=== PATIENT | female | born 1980 | race American Indian/Alaskan Native ===

== ENCOUNTER 2019-08-08 18:40 | Emergency (ER) | payer BC ==
--- NOTE | 2019-08-08 19:01 | Event Note ---
ED Screening Note Date of service: 08/08/19 Time: 18:57 ED Screening Note: 38 y o f presents to ed s/p syncope earlier today while walking to bathroom because she felt nauseous PMH: HTN on meds, anxiety, cc of cook, dizziness This initial assessment/diagnostic orders/clinical plan/treatment(s) is/are subject to change based on patients health status, clinical progression and re- assessment by fellow clinical providers in the ED. Further treatment and workup at subsequent clinical providers discretion. Patient/guardian urged not to elope from the ED as their condition may be serious if not clinically assessed and managed. Initial orders include: labs, ua,upt main eval
[2019-08-08 19:48] LABS: Basophils # (Auto) 0.1 K/mm3 (0.0-0.1); Basophils % (Auto) 1.1 % (0.0-1.8); Eosinophils # (Auto) 0.3 K/mm3 (0.0-0.4); Eosinophils % (Auto) 3.4 % (0.0-4.3); Hematocrit 33.2 % (30.3-42.9); Hemoglobin 11.2 gm/dl (10.1-14.3); Lymphocytes # (Auto) 2.4 K/mm3 (1.2-5.4); Lymphocytes % (Auto) 31.4 % (13.4-35.0); Mean Corpuscular HGB Conc 34 % (30-34); Mean Corpuscular Volume 76 fl (79-97); Monocytes # (Auto) 0.6 K/mm3 (0.0-0.8); Monocytes % (Auto) 7.4 % (0.0-7.3); Platelet Count 444 K/mm3 (140-440); Red Blood Count 4.37 M/mm3 (3.65-5.03); Red Cell Distribution Width 15.8 % (13.2-15.2)
[2019-08-08 20:04] LABS: INR 0.93 (0.87-1.13)
[2019-08-08] MEDS ORDERED: ONDANSETRON 4 MG/2 ML INJ IV ONE ×2 (20:16→23:05)
[2019-08-08] MEDS ORDERED: MORPHINE 4 MG/1 ML INJ IV ONE (20:16)
--- NOTE | 2019-08-08 20:17 | Emergency Department Report ---
ED Syncope HPI - General Chief Complaint: Syncope Stated Complaint: SYNCOPE Time Seen by Provider: 08/08/19 19:56 Source: patient Exam Limitations: no limitations - History of Present Illness Initial Comments: 38-year-old female the past without these are hypertension, anxiety, and previous CVA without residual deficits presents to the hospital complains of syncopal episode. Per complains of 8/10 frontal headache since waking up. Prior to syncopal episode patient states she was feeling well and at baseline physical status. She denies chest pain, shortness of breath, vomiting, diarrhea, melena, hematochezia, or abdominal pain. Patient not on control. 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 Patient states she is allergic to NSAIDs and aspirin and does not take aspirin daily. Pt has been compliant with her metoprolol 25 mg twice a day. She took her 9 PM dose earlier than scheduled because she felt dizzy. Pt does have a pmd but cant recall the n tarah - Related Data Allergies/Adverse Reactions: Allergies aspirin Allergy (Verified 08/08/19 20:22) Swelling NSAIDS (Non-Steroidal Anti-Inflamma Allergy (Verified 08/08/19 18:54) Swelling Home Medications: Ambulatory Orders Butalb/Acetaminophen/Caffeine [Fioricet 50-300-40 mg CAP] 1 cap PO Q6HR PRN #20 cap 08/09/19 Meclizine [Antivert] 25 mg PO TID PRN #20 tablet 08/09/19 Ondansetron [Zofran Odt] 4 mg PO Q8HR PRN #20 tab.rapdis 08/09/19 ED Review of Systems ROS: Stated complaint: SYNCOPE Other details as noted in HPI Comment: All other systems reviewed and negative ED Past Medical Hx - Past Medical History Previous Medical History?: Yes Hx Hypertension: Yes Hx CVA: Yes Hx Psychiatric Treatment: Yes (Anxiety) - Surgical History Past Surgical History?: No - Social History Smoking Status: Never Smoker Substance Use Type: None - Medications Home Medications: Home Medications Medication Instructions Recorded Confirmed Last Taken Type Butalb/Acetaminophen/Caffeine 1 cap PO Q6HR PRN #20 cap 08/09/19 Unknown Rx [Fioricet 50-300-40 mg CAP] Meclizine [Antivert] 25 mg PO TID PRN #20 tablet 08/09/19 Unknown Rx Ondansetron [Zofran Odt] 4 mg PO Q8HR PRN #20 tab.rapdis 08/09/19 Unknown Rx ED Physical Exam - General Limitations: No Limitations - Other Other exam information: General: No limitations, patient is alert in no acute distress Head exam: Atraumatic, normocephalic Eyes exam: Normal appearance, CARLOS, EOMI ENT: Moist mucous membrane Neck exam: Normal inspection, full range of motion, neck supple Respiratory exam: Clear to auscultation bilateral, no wheezes, rales, crackles Cardiovascular: Normal rate and rhythm Abdomen: Soft, nondistended, and nontender, with normal bowel sounds, no rebound, or guarding, Extremity: No deformity, no calf tenderness or leg edema. Back: Normal Inspection Neurologic: Alert, oriented x3, speech clear, no gross motor or sensory deficit, finger nose finger function intact Psychiatric: Normal mood, affect Skin: No rash ED Course Vital Signs 08/08/19 08/08/19 08/08/19 18:58 20:05 20:41 Temperature 97.4 F L 98.2 F Pulse Rate 67 64 Pulse Rate [ Lying] Respiratory 18 19 16 Rate Blood Pressure 214/114 Blood Pressure [Lying] Blood Pressure 214/108 [Right] O2 Sat by Pulse 100 100 Oximetry 08/08/19 08/08/19 08/08/19 21:11 21:54 22:24 Temperature Pulse Rate Pulse Rate [ Lying] Respiratory 19 19 16 Rate Blood Pressure Blood Pressure [Lying] Blood Pressure [Right] O2 Sat by Pulse Oximetry 08/08/19 08/08/19 08/09/19 23:10 23:44 01:44 Temperature 98.2 F 98.1 F Pulse Rate 61 56 L Pulse Rate [ 53 L Lying] Respiratory 19 16 Rate Blood Pressure Blood Pressure 168/87 [Lying] Blood Pressure 160/81 166/76 [Right] O2 Sat by Pulse 100 100 Oximetry - Reevaluation(s) Reevaluation #1: 08/08/19 21:38 pt c/o persistent frontal OSBORNE despite morphine 4mg and now has pain at xiphoid process that is reproducible with palpation. additional pain med provided. Dilaudid 0.5mg ordered ED Medical Decision Making - Lab Data Result diagrams: 08/08/19 19:15 08/08/19 19:15 Lab Results 0208/08/19 08/08/19 Range/Units 19:12 19:15 19:15 WBC 7.7 (4.5-11.0) K/mm3 RBC 4.37 (3.65-5.03) M/mm3 Hgb 11.2 (10.1-14.3) gm/dl Hct 33.2 (30.3-42.9) % MCV 76 L (79-97) fl MCH 26 L (28-32) pg MCHC 34 (30-34) % RDW 15.8 H (13.2-15.2) % Plt Count 444 H (140-440) K/mm3 Lymph % (Auto) 31.4 (13.4-35.0) % [place] % (Auto) 7.4 H (0.0-7.3) % Eos % (Auto) 3.4 (0.0-4.3) % Baso % (Auto) 1.1 (0.0-1.8) % Lymph # 2.4 (1.2-5.4) K/mm3 [place] # 0.6 (0.0-0.8) K/mm3 Eos # 0.3 (0.0-0.4) K/mm3 Baso # 0.1 (0.0-0.1) K/mm3 Seg Neutrophils % 56.7 (40.0-70.0) % Seg Neutrophils # 4.3 (1.8-7.7) K/mm3 PT (12.2-14.9) Sec. INR (0.87-1.13) Sodium 140 (137-145) mmol/L Potassium 3.5 L (3.6-5.0) mmol/L Chloride 101.2 (98-107) mmol/L Carbon Dioxide 25 (22-30) mmol/L Anion Gap 17 mmol/L BUN 9 (7-17) mg/dL Creatinine 0.8 (0.7-1.2) mg/dL Estimated GFR > 60 ml/min BUN/Creatinine Ratio 11 % Glucose 132 H (65-100) mg/dL Calcium 9.4 (8.4-10.2) mg/dL Total Bilirubin 0.20 (0.1-1.2) mg/dL AST 16 (5-40) units/L ALT 14 (7-56) units/L Alkaline Phosphatase 63 (35-129) units/L Total Creatine Kinase (30-135) units/L CK-MB (CK-2) (0.0-4.0) ng/mL CK-MB (CK-2) Rel Index (0-4) Troponin T (0.00-0.029) ng/mL Total Protein 7.5 (6.3-8.2) g/dL Albumin 4.2 (3.9-5) g/dL Albumin/Globulin Ratio 1.3 % HCG, Qual Negative (Negative) Urine Color (Yellow) Urine Turbidity (Clear) Urine pH (5.0-7.0) Ur Specific [place] (1.003-1.030) Urine Protein (Negative) mg/dL Urine Glucose (UA) (Negative) mg/dL Urine Ketones (Negative) mg/dL Urine Blood (Negative) Urine Nitrite (Negative) Urine Bilirubin (Negative) Urine Urobilinogen (<2.0) mg/dL Ur Leukocyte Esterase (Negative) Urine WBC (Auto) (0.0-6.0) /HPF Urine RBC (Auto) (0.0-6.0) /HPF U Epithel Cells (Auto) (0-13.0) /HPF Urine Mucus /HPF 08/08/19 08/08/19 08/08/19 Range/Units 19:15 19:15 20:47 WBC (4.5-11.0) K/mm3 RBC (3.65-5.03) M/mm3 Hgb (10.1-14.3) gm/dl Hct (30.3-42.9) % MCV (79-97) fl MCH (28-32) pg MCHC (30-34) % RDW (13.2-15.2) % Plt Count (140-440) K/mm3 Lymph % (Auto) (13.4-35.0) % [place] % (Auto) (0.0-7.3) % Eos % (Auto) (0.0-4.3) % Baso % (Auto) (0.0-1.8) % Lymph # (1.2-5.4) K/mm3 [place] # (0.0-0.8) K/mm3 Eos # (0.0-0.4) K/mm3 Baso # (0.0-0.1) K/mm3 Seg Neutrophils % (40.0-70.0) % Seg Neutrophils # (1.8-7.7) K/mm3 PT 12.6 (12.2-14.9) Sec. INR 0.93 (0.87-1.13) Sodium (137-145) mmol/L Potassium (3.6-5.0) mmol/L Chloride (98-107) mmol/L Carbon Dioxide (22-30) mmol/L Anion Gap mmol/L BUN (7-17) mg/dL Creatinine (0.7-1.2) mg/dL Estimated GFR ml/min BUN/Creatinine Ratio % Glucose (65-100) mg/dL Calcium (8.4-10.2) mg/dL Total Bilirubin (0.1-1.2) mg/dL AST (5-40) units/L ALT (7-56) units/L Alkaline Phosphatase (35-129) units/L Total Creatine Kinase 63 (30-135) units/L CK-MB (CK-2) < 1.0 (0.0-4.0) ng/mL CK-MB (CK-2) Rel Index 1.5 (0-4) Troponin T < 0.010 (0.00-0.029) ng/mL Total Protein (6.3-8.2) g/dL Albumin (3.9-5) g/dL Albumin/Globulin Ratio % HCG, Qual (Negative) Urine Color Yellow (Yellow) Urine Turbidity Slightly-cloudy (Clear) Urine pH 6.0 (5.0-7.0) Ur Specific [place] 1.023 (1.003-1.030) Urine Protein <15 mg/dl (Negative) mg/dL Urine Glucose (UA) Neg (Negative) mg/dL Urine Ketones Neg (Negative) mg/dL Urine Blood Sm (Negative) Urine Nitrite Neg (Negative) Urine Bilirubin Neg (Negative) Urine Urobilinogen < 2.0 (<2.0) mg/dL Ur Leukocyte Esterase Sm (Negative) Urine WBC (Auto) 6.0 (0.0-6.0) /HPF Urine RBC (Auto) 4.0 (0.0-6.0) /HPF U Epithel Cells (Auto) 32.0 H (0-13.0) /HPF Urine Mucus 3+ /HPF - EKG Data -: EKG Interpreted by [place] EKG shows normal: sinus rhythm Rate: bradycardia (59) - Radiology Data Radiology results: report reviewed CHEST 1 VIEW INDICATION / CLINICAL INFORMATION: syncope, htn. COMPARISON: None available. FINDINGS: SUPPORT DEVICES: None. HEART / MEDIASTINUM: No significant abnormality. LUNGS / PLEURA: No significant pulmonary or pleural abnormality. No pneumothorax. ADDITIONAL FINDINGS: No significant additional findings. IMPRESSION: 1. No acute findings. CT head without contrast INDICATION : Headache with dizziness. TECHNIQUE: Axial imaging performed from the skull apex through the skull base without the use of contrast. All CT examinations performed at this facility utilize dose modulation, iterative reconstruction or weight-based dosing, when appropriate, to reduce radiation dose to as low as reasonably achievable. COMPARISON: None FINDINGS: No acute intracranial hemorrhage or parenchymal abnormality. Ventricles are normal in size and appear symmetric. Soft tissues including the orbits appear normal. No acute osseous abnormality. Sinuses and mastoid air cells are clear. IMPRESSION: No acute abnormality. - Medical Decision Making Patient presents with hypertension and syncopal episode prior to arrival. Patient took her metoprolol prior to arrival with reduction in her BP without ED treatment. Patient treated with morphine and Dilaudid for pain. Patient also required multiple doses of Zofran to control nausea that worsened after pain medication. Upon reassessment patient had positive orthostatics with increased heart rate with standing and complained of vertigo/spinning sensation. Patient then received 1 L of normal saline and Meclizine 25 mg with further improvement in symptoms. Prior to discharge I sat patient up to ambulate her and she tolerated ambulation was steady gait. Pt did c/o return of frontal headache with when sitting up as well a nausea. But vertigo improved. Pt offered admission given some persistent symptoms. Pt declined and prefers to go home. Encouraged to return if symptoms worsen. Critical Care Time: No Critical care attestation.: If time is entered above; I have spent that time in minutes in the direct care of this critically ill patient, excluding procedure time. ED Disposition Clinical Impression: Syncope, Uncontrolled hypertension, Headache, Vertigo Disposition: DC-01 TO HOME OR SELFCARE Is pt being admited?: No Condition: Stable Instructions: Syncope (ED), Hypertension (ED), Vertigo (ED), Acute Headache (ED) Additional Instructions: You have declined admission to the hospital today. Take the medication as prescribed. Follow-up with your doctor or with the doctor/clinic provided. Return if symptoms worsen as indicated by your discharge instructions. Prescriptions: Meclizine [Antivert] 25 mg PO TID PRN #20 tablet PRN Reason: Vertigo Butalb/Acetaminophen/Caffeine [Fioricet 50-300-40 mg CAP] 1 cap PO Q6HR PRN #20 cap PRN Reason: Headache Ondansetron [Zofran Odt] 4 mg PO Q8HR PRN #20 tab.rapdis PRN Reason: Nausea And Vomiting Referrals: MORA SUAREZ MD [Primary Care Provider] - 3-5 Days your, primary care doctor [Other] - 3-5 Days Time of Disposition: 02:11
[2019-08-08 20:21] LABS: Alanine Aminotransferase 14 units/L (7-56); Albumin 4.2 g/dL (3.9-5); BUN/Creatinine Ratio 11; Blood Urea Nitrogen 9 mg/dL (7-17); Calcium 9.4 mg/dL (8.4-10.2); Hemolysis Index 0
[2019-08-08 20:24] LABS: Creatine Kinase MB < 1.0 ng/mL (0.0-4.0)
--- NOTE | 2019-08-08 20:59 | XRay Report ---
CHEST 1 VIEW INDICATION / CLINICAL INFORMATION: syncope, htn. COMPARISON: None available. FINDINGS: SUPPORT DEVICES: None. HEART / MEDIASTINUM: No significant abnormality. LUNGS / PLEURA: No significant pulmonary or pleural abnormality. No pneumothorax. ADDITIONAL FINDINGS: No significant additional findings. IMPRESSION: 1. No acute findings. Signer Name: Rudy Byrnes MD Signed: 08/08/2019 8:55 PM Workstation Name: [id number]
--- NOTE | 2019-08-08 21:12 | Cat Scan Report ---
CT head without contrast INDICATION : Headache with dizziness. TECHNIQUE: Axial imaging performed from the skull apex through the skull base without the use of con trast. All CT examinations performed at this facility utilize dose modulation, iterative reconstruct ion or weight-based dosing, when appropriate, to reduce radiation dose to as low as reasonably achiev able. COMPARISON: None FINDINGS: No acute intracranial hemorrhage or parenchymal abnormality. Ventricles are normal in si ze and appear symmetric. Soft tissues including the orbits appear normal. No acute osseous abnorm ality. Sinuses and mastoid air cells are clear. IMPRESSION: No acute abnormality. Signer Name: Rudy Byrnes MD Signed: 08/08/2019 9:07 PM Workstation Name: [id number]
[2019-08-08 21:20] LABS: Bilirubin,Urine NEG (Negative); Blood,Urine SM (Negative); Color,Urine Yellow (Yellow); Mucus,Urine 3+ /HPF; Protein,Urine <15 mg/dL mg/dL (Negative); Urobilinogen,Urine < 2.0 mg/dL (<2.0)
[2019-08-08] MEDS ORDERED: HYDROmorphone 1 MG/1 ML INJ IV ONE (21:38)
[2019-08-09] MEDS ORDERED: SODIUM CHLORIDE 0.9% 1000 ML 1,000 ML IV ONE (00:37)
[2019-08-09] MEDS ORDERED: SODIUM CHLORIDE 0.9% 1000 ML 1,000 ML ONE (00:39)
[2019-08-09] MEDS ORDERED: MECLIZINE 25 MG TAB PO ONE (00:46)
[2019-08-09 01:44] VITALS: BP 166/76
== END 2019-08-09 02:34 | disposition home or self-care (01) ==
LOC: ED 18:40
DX: R55 Syncope and collapse (principal); I10 Essential (primary) hypertension; Z86.73 Personal history of transient ischemic attack (TIA), and cerebral infarction without residual deficits; F41.9 Anxiety disorder, unspecified; Z79.899 Other long term (current) drug therapy; Z88.6 Allergy status to analgesic agent
CPT/HCPCS: 36415; 70450; 71045; 80053; 81001; 82550; 82553; 84484; 84703; 85025; 85610; 93005; 93010; 96361; 96374; 96375; 96376; 99285; J1170; J2270; J2405; J7030

== ENCOUNTER 2021-05-02 03:03 | Emergency (ER) | payer BC, OTHER ==
[2021-05-02 03:52] VITALS: BP 183/104
== END 2021-05-02 06:45 | disposition left against medical advice (07) ==
LOC: ED 03:03
DX: H92.02 Otalgia, left ear (principal); J02.9 Acute pharyngitis, unspecified; Z53.21 Procedure and treatment not carried out due to patient leaving prior to being seen by health care provider